=== PATIENT | male | born 1940 | race Caucasian/White ===

== ENCOUNTER 2017-10-10 01:34 | Day surgery (SDC) | payer MEDICARE, OTHER ==
[2017-10-03 14:05] LABS: PLATELET COUNT, AUTOMATED 212 K/uL (150-450)
--- NOTE | 2017-10-03 14:30 | EKG ---
FACILITY: [facility] PATIENT NAME: ISREAL ANAYA : [id number] MR: [id number] V: [id number] EXAM DATE: ORDERING PHYSICIAN: KELLEY GORDILLO TECHNOLOGIST: Vineet Boo Reason : PREOP Blood Pressure : / mmHG Vent. Rate : 063 BPM Atrial Rate : 063 BPM P-R Int : 190 ms QRS Dur : 080 ms QT Int : 406 ms P-R-T Axes : 041 018 055 degrees QTc Int : 415 ms Normal sinus rhythm Normal ECG When compared with ECG of 07-OCT-2015 08:58, No significant change was found Confirmed by FAN CROW ([id number]) on 10/03/2017 7:59:53 PM Referred By: Confirmed By:FAN CROW
--- NOTE | 2017-10-03 15:43 | RADIOLOGY IMAGING REPORT ---
[facility] PATIENT NAME: Carlos Raman : 1940 MR: [id number] V: [id number] EXAM DATE: ORDERING PHYSICIAN: KELLEY GORDILLO TECHNOLOGIST: Location: [facility] Patient: Carlos Raman : 1940 Visit/Account:[id number] Date of Sevice: 10/03/2017 Exam type: CHEST PA AND LAT History: HX OF BLADDER CA Comparison: October 07, 2015 and January 07, 2015. Findings: The lungs are free of acute effusions infiltrates or edema. There is a small band of subsegmental at electasis in the lateral left lung base. The cardiac silhouette is normal in size. The right infrah ilar region appears slightly more prominent when compared the prior study. Incidentally noted is a h iatal hernia IMPRESSION: 1. No acute cardiac pulmonary process is seen other than a small band of subsegmental atelectasis in the lateral left lung base The right infrahilar region appears more prominent when compared to the prior study. This may simply be related to difference in radiographic technique. Short-term interval follow-up chest may be help ful for further evaluation Report Dictated By: Lisa Benitez MD at 10/03/2017 3:32 PM Report E-Signed By: Lisa Benitez MD at 10/03/2017 3:39 PM WSN:[email or web address]
--- NOTE | 2017-10-09 16:43 | HISTORY AND PHYSICAL ---
DATE OF ADMISSION: October 10, 2017 CHIEF COMPLAINT Phimosis. HISTORY OF PRESENT ILLNESS Patient is a 77-year-old white male with a history of bladder cancer. He has been followed in the Urology Clinic for approximately six years. He noted increasing discomfort and difficulty in retracting his foreskin over the past several months. He was treated with topical triamcinolone and Silvadene mixture cream without any improvement, and has continued to have irritation with cracking and difficulty with hygiene. He is now being brought to the operating room for planned adult circumcision. PAST MEDICAL HISTORY * Coronary artery disease, status post FL in 2014, with last angiogram in 2010. * Hypertension. * Peptic ulcer disease. * Hypercholesterolemia. * Anxiety and depression. * History of elevated PSA. * Bladder cancer. PAST SURGICAL HISTORY * Cardiac stenting in 2004. * Colostomy times three. * Transurethral resection of bladder cancer in April 2012, followed by BCG intravesical treatments. * Cystoscopy with evacuation of bladder clots in May 2012. * Restaging transurethral resection of bladder tumor in June 2012. * Transurethral biopsy of bladder dome, September 2013. * Bilateral cataracts. * Inguinal hernia repair. ALLERGIES SULFA. CURRENT MEDICATIONS * Aspirin. * Lipitor. * Finasteride. * Bystolic. * Tamsulosin. * Citalopram. SOCIAL HISTORY Patient is , lives in [place], [place]. He has been without tobacco since 1995. FAMILY HISTORY Negative for prostate cancer. However, he has positive colon cancer in his family. REVIEW OF SYSTEMS Patient denies gross hematuria, flank pain, change in weight, productive cough, fever, chills, chest pain, dyspnea on exertion or bleeding disorder. PHYSICAL EXAMINATION GENERAL: Patient is a well-developed, well-nourished white male in no acute distress. HEENT: Normocephalic, atraumatic. CHEST: Clear to auscultation bilaterally. CARDIOVASCULAR: Regular rate and rhythm. ABDOMEN: Soft, nontender. No masses are palpated. GENITOURINARY: Exam is deferred to the OR. EXTREMITIES: Without clubbing, cyanosis or edema. NEUROLOGIC: Exam is nonfocal. IMPRESSION A 77-year-old white male with redundant foreskin with phimosis. PLAN We will perform adult circumcision. [facility]
[~2017-10-10] VITALS: Ht 185.4 cm; Wt 111.6 kg
[~2017-10-10 01:34] MED LIST: ASPI-1403 PO; ASPI-715 PO; ASPI81TA94 PO; ATOR20TA65 PO; CEPH500C24 PO; CITA-139 PO; CLO75 PO; CLOP75TA PO; CLOP75TA43 PO; DOC100 PO; DOCU-416 PO; ENAL20TA99 PO; FAMO-122 PO; FES4PT PO; FESO8PT PO; FINA5TAB67 PO; ISOS30TA51 PO; ISOS30TA54 PO; KET10 PO; LOR5 PO; LOR5/325 PO; METO25TA93 PO; NEB5 PO; NEBI5TAB PO; NIT100 PO; OXYB10TA21 PO; OXYC-373 PO; PER PO; PHEN200T32 PO; PNEU0.5D3 IM; ROS10 PO; TAMS0.4C25 PO; TAMS0.4C70 PO; TOLT4CAP13 PO; [UNRECOGNIZED DRUG - REMARK]
[2017-10-10] MEDS ORDERED: ceFAZolin(*) 1 GM VIAL 1 GM in NS(*) 0.9% 100 ML ADDVANT BAG 100 ML IV ONE (06:45)
[2017-10-10] MEDS ORDERED: ceFAZolin(*) 1 GM VIAL 1 GM in NS(*) 0.9% 100 ML ADDVANT BAG 100 ML IVPB ONE (06:45)
[2017-10-10] MEDS ORDERED: ceFAZolin 1 GM VIAL IVPB ONE (06:45)
[2017-10-10] MEDS ORDERED: NEOMYCIN/POLYMYX/BACITR 30 GM TP ONE (07:11)
[2017-10-10] MEDS ORDERED: ROPIVACAINE 0.2% 20 ML VIAL ONE (07:11)
[2017-10-10] MEDS ORDERED: LIDOCAINE MPF 1% 5 ML VIAL ONE (08:06)
[2017-10-10] MEDS ORDERED: ONDANSETRON 4 MG/2 ML VIAL ONE (08:06)
[2017-10-10] MEDS ORDERED: PROPOFOL EMUL(*) 10MG/ML 20 ML 20 ML ONE (08:06)
[2017-10-10] MEDS ORDERED: DEXAMETHASONE SOD 4 MG/ML VIAL ONE (08:06)
[2017-10-10 08:08] VITALS: BP 144/83
[2017-10-10] MEDS ORDERED: fentaNYL CITR 100 MCG/2 ML AMP ONE (08:09)
[2017-10-10] MEDS ORDERED: MIDAZOLAM 2 MG/2 ML VIAL IVP PRN (08:25)
[2017-10-10] MEDS ORDERED: NORMOSOL R SOLN(*) 1000 ML BAG 1,000 ML IV PRN (08:25)
[2017-10-10] MEDS ORDERED: LIDOCAINE/SOD BICARB 8.4% SYR ID ONE (08:25)
[2017-10-10] MEDS ORDERED: FAMOTIDINE 20 MG TAB PO ONE (08:25)
[2017-10-10] MEDS ORDERED: MINERAL OIL LIGHT 10 ML VIAL ONE (08:58)
[2017-10-10] MEDS ORDERED: KETOROLAC 30 MG/ML VIAL ONE (10:09)
[2017-10-10] MEDS ORDERED: HYDR-385 PO (10:43)
[2017-10-10] MEDS ORDERED: DOCU-416 PO (10:44)
[2017-10-10] MEDS ORDERED: NEOM28.424 TP (10:46)
[2017-10-10 11:15] VITALS: BP 129/73
[2017-10-10 11:21] VITALS: BP 123/73
[2017-10-10 11:23] VITALS: BP 123/72
--- NOTE | 2017-10-10 18:34 | OPERATIVE REPORT 1 ---
EVENT DATE: October 10, 2017 SURGEON: Kale Hankins MD ANESTHESIOLOGIST: Catarino Guadarrama MD ANESTHESIA: General anesthetic. PREOPERATIVE DIAGNOSIS Redundant foreskin with phimosis. POSTOPERATIVE DIAGNOSIS Redundant foreskin with phimosis. PROCEDURE PERFORMED Adult circumcision with penile block. ESTIMATED BLOOD LOSS 5 mL INTRAVENOUS FLUIDS Crystalloids. DRAINS None. COMPLICATIONS None. PATHOLOGY Foreskin for permanent analysis. FINDINGS BXO changes on the dorsal aspect of foreskin. CONDITION The patient was taken to the recovery room awake in stable condition. STATEMENT OF MEDICAL NECESSITY The patient is a 77-year-old white male with increasing difficulty retracting his foreskin with skin irritation. He has failed conservative treatment with triamcinolone and Silvadene creams. He is now being brought to the operating room for planned circumcision. DESCRIPTION OF PROCEDURE PERFORMED The patient was brought to the operating room, and after general anesthetic was obtained, he was given a penile block with 0.25% ropivacaine. Following this, the inner and outer tables of the foreskin were marked with the marking pen, and these areas were incised. They were connected ventrally and the redundant foreskin removed with electrocautery. Small bleeding vessels at the skin edge were controlled with electrocautery, and then the skin edges were reapproximated with interrupted mattress stitch of 4-0 chromic. Following repair, antibiotic ointment was placed along the incision, and a roll of gauze was placed around the penis. The patient was awakened in the operating room and taken to the recovery room and taken to the recovery area in stable condition. PLAN The plan will be to allow the patient to be discharged home later today. He is sent home on [place], Colace, and antibiotic ointment. We will plan to see the patient in the Urology Clinic in four to six weeks for followup exam. He is to remove his roll of gauze early this afternoon. [facility]
== END 2017-10-10 11:15 | disposition home or self-care (01) ==
LOC: OR 01:34
PROVIDERS: ATTEND Urology
DX: N47.8 Other disorders of prepuce (principal); N47.1 Phimosis; I10 Essential (primary) hypertension; I25.810 Atherosclerosis of coronary artery bypass graft(s) without angina pectoris; N40.0 Benign prostatic hyperplasia without lower urinary tract symptoms
CPT/HCPCS: 36415; 54161; 71046; 81001; 84153; 85025; 87088; 88307; 93005; A9270; J0690; J1100; J1885; J2001; J2405; J2704; J2795; J3010; 82040; 82247; 82310; 82374; 82435; 82565; 82947; 84075; 84132; 84155; 84295; 84450; 84460; 84520

== ENCOUNTER → 2018-03-04 | Outpatient (CLI) | payer MEDICARE, OTHER ==
[~2018-03-04] MED LIST changes: -CITA-139 PO; +CITA-145 PO; +HYDR-385 PO; +NEOM28.424 TP
[2018-03-04 08:38] LABS: PLATELET COUNT, AUTOMATED 162 K/uL (150-450)
[2018-03-04 09:46] LABS: LDL CHOLESTEROL 42 mg/dl
== END ==
LOC: LAB 08:06
PROVIDERS: ATTEND Nurse Practitioner Family
DX: Z12.5 Encounter for screening for malignant neoplasm of prostate (principal); E78.00 Pure hypercholesterolemia, unspecified; I10 Essential (primary) hypertension
CPT/HCPCS: 36415; 84443; 85025; G0103; 82040; 82247; 82310; 82374; 82435; 82465; 82565; 82947; 83718; 84075; 84132; 84153; 84155; 84295; 84450; 84460; 84478; 84520

== ENCOUNTER → 2018-03-07 | Outpatient (CLI) | payer MEDICARE, OTHER ==
--- NOTE | 2018-03-07 08:38 | RADIOLOGY IMAGING REPORT ---
FACILITY: [facility] [place] PATIENT NAME: Carlos Raman : 1940 MR: [id number] V: [id number] EXAM DATE: ORDERING PHYSICIAN: GOVIND CHOUDHURY TECHNOLOGIST: Location: [facility] [place] Patient: Carlos Raman : 1940 Visit/Account:[id number] Date of Sevice: 03/07/2018 2 VIEWS CHEST INDICATION: Chronic cough. COMPARISON: 10/03/2017 FINDINGS: Minimal atelectasis and/or scarring is seen in the left lung base. The lungs are otherwise clear and are well aerated. No effusion or pneumothorax is seen. Heart size and mediastinal contours are fabrizio l. Minimal atherosclerosis noted within the aortic arch. There is a suspected hiatal hernia. IMPRESSION: 1. No radiographic evidence of active disease. 2. Minimal scarring/atelectasis within the left lung base. Report Dictated By: Mendoza De Leon at 03/07/2018 8:33 AM Report E-Signed By: Mendoza De Leon at 03/07/2018 8:35 AM WSN:[email or web address]
== END ==
LOC: LAB 08:04
PROVIDERS: ATTEND Nurse Practitioner Family
DX: I25.10 Atherosclerotic heart disease of native coronary artery without angina pectoris (principal); R91.8 Other nonspecific abnormal finding of lung field
CPT/HCPCS: 71046

== ENCOUNTER → 2018-03-18 | Outpatient (REF) | payer MEDICARE, OTHER | LOC: ZZSENDIN 14:20 | PROVIDERS: ATTEND Urology | DX: C67.0 Malignant neoplasm of trigone of bladder (principal) | CPT/HCPCS: 88108 ==

== ENCOUNTER → 2018-09-12 | Outpatient (CLI) | payer MEDICARE, OTHER ==
--- NOTE | 2018-09-12 10:21 | RADIOLOGY IMAGING REPORT ---
FACILITY: [facility] [place] PATIENT NAME: Carlos Raman : 1940 MR: [id number] V: [id number] EXAM DATE: ORDERING PHYSICIAN: RADHA GUERRA TECHNOLOGIST: Location: [facility] [place] Patient: Carlos Raman : 1940 Visit/Account:[id number] Date of Sevice: 09/12/2018 EXAMINATION: Aorta ultrasound with duplex Doppler evaluation HISTORY: AAA seen on ultrasound 2016 COMPARISON: July 16, 2017 FINDINGS: Suprarenal abdominal aorta: 3.3 x 3.9 cm AP and transverse dimensions Superior infrarenal abdominal aorta: Two x 2.8 cm AP and transverse dimensions Mid infrarenal abdominal aorta: 3.2 x 3.6 cm AP and transverse dimensions Inferior infrarenal abdominal aorta: 3.3 x 3.3 cm AP and transverse dimensions Proximal common iliac artery diameter: Left 17 mm; right 15 mm Aorta wall: Not ideally evaluated. This was a technically limited study by technologist notation Aorta and proximal common iliac artery are patent by duplex Doppler ultrasound.. Incidental note of gallstones and a 2.5 x 3.2 cm left renal cyst IMPRESSION: Measurements of the suprarenal abdominal aorta of 3.3 x 3.9 cm consistent with aneurysm although on t he examination was technically limited by the technologist notation due to body habitus and bowel gas . Inferior infrarenal abdominal aorta measured 3.3 x 3.3 cm. Given the technical limitations furthe r evaluation with CT may be helpful depending upon the degree of clinical concern Cholelithiasis 3.2 cm left renal cyst Report Dictated By: Lisa Benitez MD at 09/12/2018 10:10 AM Report E-Signed By: Lisa Benitez MD at 09/12/2018 10:17 AM WSN:[email or web address]
== END ==
LOC: US 02:11
PROVIDERS: ATTEND Internal Medicine Cardiovascular Disease
DX: N28.1 Cyst of kidney, acquired (principal); I71.4 Abdominal aortic aneurysm, without rupture
CPT/HCPCS: 93979

== ENCOUNTER → 2018-11-24 | Outpatient (CLI) | payer MEDICARE, OTHER ==
[~2018-11-24] MED LIST changes: +LISI5TAB25 PO
== END ==
LOC: LAB 13:26
PROVIDERS: ATTEND Nurse Practitioner Family
DX: I10 Essential (primary) hypertension (principal)
CPT/HCPCS: 36415; 82040; 82247; 82310; 82374; 82435; 82565; 82947; 84075; 84132; 84155; 84295; 84450; 84460; 84520

== ENCOUNTER → 2018-12-17 | Outpatient (REF) | payer MEDICARE, OTHER ==
[~2018-12-17] MED LIST changes: +ROSU10TA PO
== END ==
LOC: ZZSENDIN 12:00
PROVIDERS: ATTEND Urology
DX: R31.9 Hematuria, unspecified (principal)
CPT/HCPCS: 88108

== ENCOUNTER 2018-12-25 14:06 | Emergency (ER) | payer MEDICARE, OTHER ==
--- NOTE | 2018-12-25 14:24 | ER Report ---
History and Physical Time Seen By MD: 14:24 Hx. of Stated Complaint: chest pain that started this morning. has one stent HPI/ROS CHIEF COMPLAINT: Chest pain HISTORY OF PRESENT ILLNESS: This is a 78-year-old male who presents to the emergency department for chest pain. Patient states while he was driving, about 11:00 today he had rather abrupt onset of left anterior chest pain, began with a moist nonproductive cough. No diaphoresis. No fevers or chills. No nausea or vomiting. No dysuria. REVIEW OF SYSTEMS: Constitutional: No fever, no chills. Eyes: No discharge. ENT: No sore throat. Cardiovascular: As above. Respiratory: As above. Gastrointestinal: No abdominal pain, no vomiting. Genitourinary: No hematuria. Musculoskeletal: No back pain. Skin: No rashes. Neurological: No headache. Allergies: Coded Allergies: Sulfa (Sulfonamide Antibiotics) (Verified Allergy, Mild, RASH, 12/25/18) Home Meds Active Scripts Prednisone (PREDNISONE) 20 Mg Tablet, 20 MG PO BID, #10 TAB Prov:KEZIA TRIMBLE-BC 12/25/18 Lisinopril (LISINOPRIL) 5 Mg Tablet, 1 TAB PO QDAY, #90 TAB 3 Refills Prov:GOVIND CHOUDHURY APRN-C 11/24/18 Atorvastatin Calcium (ATORVASTATIN CALCIUM) 20 Mg Tablet, 1 TAB PO DAILY, #90 TAB 1 Refill Prov:GOVIND CHOUDHURY APRN-C 08/19/18 Nebivolol Hcl (BYSTOLIC) 5 Mg Tablet, 1 TAB PO DAILY, #90 TAB 1 Refill Prov:GOVIND CHOUDHURY APRN-C 07/14/18 Isosorbide Mononitrate (ISOSORBIDE MONONITRATE ER) 30 Mg Tab.er.24h, 1 TAB PO DAILY, #90 TAB 1 Refill Prov:GVOIND CHOUDHURY APRN-C 06/27/18 Citalopram Hydrobromide (CITALOPRAM HBR) 20 Mg Tablet, 1 TAB PO QDAY, #90 TAB 3 Refills Prov:GOVIND CHOUDHURY APRN-C 06/10/18 Reported Medications Docusate Sodium (COLACE) 100 Mg Capsule, 100 MG PO BID for STOOL SOFTENER, #30 CAPSULE 10/10/17 Finasteride (FINASTERIDE) 5 Mg Tablet, 1 TAB PO QDAY, #90 TAB 3 Refills 01/07/15 Tamsulosin Hcl (TAMSULOSIN HCL) 0.4 Mg Cap.er.24h, 1 TAB PO HS, #90 CAP 3 Refills 01/07/15 Aspirin (ADULT LOW DOSE ASPIRIN EC) 81 Mg Tablet.dr, 81 MG PO 1-2XD 10/06/14 Past Medical/Surgical History The patient has a past medical and surgical history of coronary artery stent, myocardial infarction, hypertension, hypercholesterolemia, colonoscopy, GERD, bladder cancer BPH, skull fracture, hard of hearing, wears glasses, takes aspirin daily, depression, bladder surgery, hernia repair, cystoscopies. Reviewed Nurses Notes: Yes Hx Smoking: Yes (2 PACKS DAILY FOR 40 YEARS, QUIT 1995) Smoking Status: Former Smoker Exposure to Second Hand Smoke?: No Hx Substance Use Disorder: No Hx Alcohol Use: Yes Constitutional Vital Sign - Last 24 Hours 12/25/18 12/25/18 12/25/18 12/25/18 14:10 14:13 14:21 14:36 Pulse 70 68 65 Resp 16 12 13 B/P (MAP) 147/99 (115) 147/99 Pulse Ox 89 91 90 O2 Delivery Room Air 12/25/18 12/25/18 12/25/18 12/25/18 14:38 14:51 14:56 15:00 Pulse 64 Resp 10 B/P (MAP) 128/89 (102) ???/??? (6885) Pulse Ox 92 O2 Flow Rate 2.0 12/25/18 12/25/18 12/25/18 12/25/18 15:06 15:21 15:30 15:36 Pulse ??? 60 61 Resp 12 17 B/P (MAP) 110/67 (81) Pulse Ox 91 94 12/25/18 12/25/18 12/25/18 12/25/18 15:51 15:56 16:00 16:11 Pulse 59 58 58 Resp 16 9 15 B/P (MAP) 113/71 (85) Pulse Ox 90 90 89 12/25/18 12/25/18 12/25/18 12/25/18 16:26 16:28 16:28 16:33 Pulse 62 59 Resp 17 16 B/P (MAP) 114/82 (93) Pulse Ox 93 95 O2 Delivery Nasal Cannula O2 Flow Rate 1.0 12/25/18 12/25/18 12/25/18 12/25/18 16:33 16:41 16:56 17:00 Pulse 62 61 63 Resp 16 12 12 B/P (MAP) 115/75 (88) Pulse Ox 88 89 12/25/18 12/25/18 12/25/18 12/25/18 17:11 17:26 17:30 17:35 Pulse 63 64 Resp 11 15 B/P (MAP) 124/75 (91) Pulse Ox 90 89 86 O2 Delivery Room Air 12/25/18 12/25/18 12/25/18 12/25/18 17:41 17:46 18:01 18:16 Pulse 64 64 65 65 Resp 10 12 19 9 Pulse Ox 89 90 88 90 12/25/18 18:31 Pulse 66 Resp 13 Pulse Ox 90 Physical Exam General Appearance: The patient is alert, has no immediate need for airway protection and no signs of toxicity. Eyes: Pupils equal and round no pallor or injection. ENT, Mouth: Mucous membranes are dry. Respiratory: There are no retractions, lungs are clear to auscultation. Cardiovascular: Regular rate and rhythm, no murmurs, clicks or rubs. Gastrointestinal: Abdomen is soft and non tender, no masses, bowel sounds norm al. Neurological: Alert and oriented 4. Moving all extremities. Following all commands. No focal neuro deficits. Skin: Warm and dry, no rashes. Musculoskeletal: Neck is supple non tender. Extremities are nontender, nonswollen and have full range of motion. DIFFERENTIAL DIAGNOSIS: After history and physical exam differential diagnosis was considered for chest pain including but not limited to myocardial ischemia, pericarditis pulmonary embolus, chest wall pain, pleural inflammation and p ulmonary infectious causes. Medical Decision Making Data Points Result Diagram: 12/25/18 1431 12/25/18 1431 Laboratory Hematology Test 12/25/18 14:31 12/25/18 17:20 Red Blood Count 5.77 M/uL (4.00-5.60) Mean Corpuscular Volume 89.6 fL (80.0-96.0) Mean Corpuscular Hemoglobin 29.3 pg (26.0-33.0) Mean Corpuscular Hemoglobin Concent 32.7 g/dL (32.0-36.0) Red Cell Distribution Width 14.3 % (11.5-14.5) Mean Platelet Volume 8.4 fL (7.2-11.1) Neutrophils (%) (Auto) 60.4 % (39.4-72.5) Lymphocytes (%) (Auto) 25.0 % (17.6-49.6) Monocytes (%) (Auto) 11.1 % (4.1-12.4) Eosinophils (%) (Auto) 2.9 % (0.4-6.7) Basophils (%) (Auto) 0.6 % (0.3-1.4) Nucleated RBC Relative Count (auto) 0.1 /100WBC Neutrophils # (Auto) 3.8 K/uL (2.0-7.4) Lymphocytes # (Auto) 1.6 K/uL (1.3-3.6) Monocytes # (Auto) 0.7 K/uL (0.3-1.0) Eosinophils # (Auto) 0.2 K/uL (0.0-0.5) Basophils # (Auto) 0.0 K/uL (0.0-0.1) Nucleated RBC Absolute Count (auto) 0.00 K/uL D-Dimer Quantitative (PE/DVT) 0.30 ug/ml (0-0.50) Sodium Level 138 mmol/L (137-145) Potassium Level 4.2 mmol/L (3.5-5.0) Chloride Level 106 mmol/L (98-107) Carbon Dioxide Level 23 mmol/L (22-30) Blood Urea Nitrogen 30 mg/dl (9-21) Creatinine 1.00 mg/dl (0.66-1.25) Glomerular Filtration Rate Calc > 60.0 Random Glucose 151 mg/dl (75-110) Calcium Level 8.6 mg/dl (8.4-10.2) Total Bilirubin 0.9 mg/dl (0.2-1.3) Aspartate Amino Transf (AST/SGOT) 30 U/L (0-35) Alanine Aminotransferase (ALT/SGPT) 30 U/L (0-56) Alkaline Phosphatase 73 U/L (0-126) Total Protein 7.1 g/dl (6.3-8.2) Albumin 4.2 g/dl (3.5-5.0) Troponin I < 0.012 ng/ml Chemistry Test 12/25/18 14:31 12/25/18 17:20 White Blood Count 6.3 k/uL (4.5-11.0) Red Blood Count 5.77 M/uL (4.00-5.60) Hemoglobin 16.9 g/dL (14.0-18.0) Hematocrit 51.7 % (42.0-52.0) Mean Corpuscular Volume 89.6 fL (80.0-96.0) Mean Corpuscular Hemoglobin 29.3 pg (26.0-33.0) Mean Corpuscular Hemoglobin Concent 32.7 g/dL (32.0-36.0) Red Cell Distribution Width 14.3 % (11.5-14.5) Platelet Count 222 K/uL (150-450) Mean Platelet Volume 8.4 fL (7.2-11.1) Neutrophils (%) (Auto) 60.4 % (39.4-72.5) Lymphocytes (%) (Auto) 25.0 % (17.6-49.6) Monocytes (%) (Auto) 11.1 % (4.1-12.4) Eosinophils (%) (Auto) 2.9 % (0.4-6.7) Basophils (%) (Auto) 0.6 % (0.3-1.4) Nucleated RBC Relative Count (auto) 0.1 /100WBC Neutrophils # (Auto) 3.8 K/uL (2.0-7.4) Lymphocytes # (Auto) 1.6 K/uL (1.3-3.6) Monocytes # (Auto) 0.7 K/uL (0.3-1.0) Eosinophils # (Auto) 0.2 K/uL (0.0-0.5) Basophils # (Auto) 0.0 K/uL (0.0-0.1) Nucleated RBC Absolute Count (auto) 0.00 K/uL D-Dimer Quantitative (PE/DVT) 0.30 ug/ml (0-0.50) Glomerular Filtration Rate Calc > 60.0 Calcium Level 8.6 mg/dl (8.4-10.2) Total Bilirubin 0.9 mg/dl (0.2-1.3) Aspartate Amino Transf (AST/SGOT) 30 U/L (0-35) Alanine Aminotransferase (ALT/SGPT) 30 U/L (0-56) Alkaline Phosphatase 73 U/L (0-126) Total Protein 7.1 g/dl (6.3-8.2) Albumin 4.2 g/dl (3.5-5.0) Troponin I < 0.012 ng/ml Coagulation Test 12/25/18 14:31 D-Dimer Quantitative (PE/DVT) 0.30 ug/ml EKG/Imaging EKG Interpretation 12 lead EKG: Time of EKG 1416. Rhythm: Normal sinus rhythm, ventricular rate 67 bpm. [place]: normal QRS: normal ST segments: No ST depression or elevation identified. No significant changes from the 10/03/2017 EKG. Imaging Location: [facility] [place] Patient: Carlos Raman : 1940 Visit/Account:[id number] Date of Sevice: 12/25/2018 Technique: CHEST PA LAT HISTORY: Chest pain Comparison studies: Chest radiograph March 07, 2018 FINDINGS: There is a low degree of inspiration. Bibasilar linear opacities are noted. Lung apices are clear. Cardiac silhouette is unremarkable. IMPRESSION: 1. Low degree of inspiration with linear bibasilar opacities likely secondary to atelectasis. Report Dictated By: Hans Sam DO at 12/25/2018 3:18 PM Report E-Signed By: Hans Sam DO at 12/25/2018 3:20 PM WSN:[email or web address] ED Course/Re-evaluation Clinical Indication for ER IV: IV Access ED Course The patient was admitted to room. A history of physical were obtained. Differential diagnoses were considered. An IV was started. A CBC, CMP, troponin were obtained. Lab studies unremarkable. Negative troponin. Chest x-ray showing bilateral atelectasis, did review these results with the patient, I did recommend a repeat troponin, patient was agreeable, negative repeat troponin. I did recommend home oxygen for the low oxygen saturation in the emergency department, he will also use a flutter valve home in addition to this he will be given a course of steroids. Patient is agreeable with this plan of care, he'll follow up with his primary care provider for reevaluation next week, he was encouraged to return to the ER should he develop any other concerning symptoms which would be suggestive of pneumonia which we've thoroughly discussed. They had no other questions or concerns at this time, he was given 20 mg prednisone in the ER. Was also given a DuoNeb with some improvement, he was also given 324 mg chewable baby aspirin. Decision to Disposition Date: Dec 25, 2018 Decision to Disposition Time: 18:13 Depart Departure Latest Vital Signs Vital Signs Date Time Temp Pulse Resp B/P (MAP) Pulse Ox O2 Delivery O2 Flow Rate FiO2 12/25/18 18:31 66 13 90 12/25/18 17:35 Room Air 12/25/18 17:30 124/75 (91) 12/25/18 16:28 1.0 Impression: Primary Impression: Chest pain Additional Impression: Atelectasis of both lungs Condition: Improved Disposition: HOME OR SELF-CARE Referrals: GOVIND CHOUDHURY APRN PIPE CAULKER-C (PCP) 1 Week New Scripts Prednisone (PREDNISONE) 20 Mg Tablet 20 MG PO BID, #10 TAB Prov: KEZIA TRIMBLE PIPE CAULKER-BC 12/25/18 Departure Forms: ER Transition Record, Home Oxygen, Nebulizer RX, Home Ox ygen Company Chosen by Patient: [facility]xygen Durable Medical Equipment-Oxygen: Oxygen Concentrator, Portable Oxygen Gas Reason for Use/Diagnosis: Hypoxia, chest pain, atelectasis Start Date of the Order: Dec 25, 2018 Dosage or Concentration (if applicable) - LPM: 2 Route of Administration (if applicable): Nasal Cannula Frequency of Use: Continuous Duration Home O2 Required: 30 Duration Units: Days Room Air Oxygen Saturation: 86 ER Prescribing Physician's Name: Other NPI Numbers for Local ER MDs: Other Medications Reconciliation, Patient Portal Information Patient Instructions: Atelectasis (ED), Chest Pain (ED) Additional Instructions: There were no concerning findings on your EKG, or heart studies. You do have mild atelectasis on your x-ray, please use the flutter valve every hour as directed. Use the oxygen 24 hours a day for the next 7 days. Please follow-up with your primary care provider within one week for reevaluation. Take the prednisone as prescribed. If you develop fevers, increased chest pain or shortness of breath please return to the emergency department immediately for reevaluation. Problem Qualifiers Primary Impression: Chest pain Chest pain type: chest pain on breathing Qualified Codes: R07.1 - Chest pain on breathing KEZIA TRIMBLE-[place] Dec 25, 2018 14:24
[2018-12-25] MEDS ORDERED: NS(*) 0.9% 500 ML BAG 500 ML IV ONE (14:47)
[2018-12-25] MEDS ORDERED: ASPIRIN 81 MG CHEW PO ONE (14:50)
--- NOTE | 2018-12-25 14:52 | EKG ---
FACILITY: [facility] PATIENT NAME: ISREAL ANAYA : [id number] MR: [id number] V: [id number] EXAM DATE: ORDERING PHYSICIAN: KEZIA TRIMBLE TECHNOLOGIST: ILSA Boo Reason : CARDIAC Blood Pressure : / mmHG Vent. Rate : 067 BPM Atrial Rate : 067 BPM P-R Int : 196 ms QRS Dur : 086 ms QT Int : 406 ms P-R-T Axes : 053 -17 053 degrees QTc Int : 429 ms Sinus rhythm Borderline left axis Possible previous inferior infarct Nonspecific ST findings Abnormal ECG When compared with ECG of 03-OCT-2017 14:19, No significant change was found Confirmed by SHAYY NUNO ([id number]) on 12/26/2018 5:25:56 AM Referred By: Confirmed By:SHAYY NUNO
[2018-12-25 14:56] LABS: PLATELET COUNT, AUTOMATED 222 K/uL (150-450)
--- NOTE | 2018-12-25 15:25 | RADIOLOGY IMAGING REPORT ---
FACILITY: [facility] [place] PATIENT NAME: Carlos Raman : 1940 MR: [id number] V: [id number] EXAM DATE: ORDERING PHYSICIAN: KEZIA TRIMBLE TECHNOLOGIST: Location: [facility] [place] Patient: Carlos Raman : 1940 Visit/Account:[id number] Date of Sevice: 12/25/2018 Technique: CHEST PA LAT HISTORY: Chest pain Comparison studies: Chest radiograph March 07, 2018 FINDINGS: There is a low degree of inspiration. Bibasilar linear opacities are noted. Lung apices a re clear. Cardiac silhouette is unremarkable. IMPRESSION: 1. Low degree of inspiration with linear bibasilar opacities likely secondary to atelectasis. Report Dictated By: Hans Sam DO at 12/25/2018 3:18 PM Report E-Signed By: Hans Sam DO at 12/25/2018 3:20 PM WSN:[email or web address]
[2018-12-25] MEDS ORDERED: ALBUTEROL/IPRATROPIUM 3 ML NEB NEB ONE (16:25)
[2018-12-25 17:30] VITALS: BP 124/75
[2018-12-25] MEDS ORDERED: PRED20TA6 PO (18:16)
[2018-12-25] MEDS ORDERED: predniSONE 20 MG TAB PO ONE (18:20)
== END 2018-12-25 18:42 | disposition home or self-care (01) ==
LOC: ER 14:38
DX: R07.1 Chest pain on breathing (principal); J98.11 Atelectasis
CPT/HCPCS: 71046; 84484; 85025; 85379; 93005; 94640; 94667; 96360; 99284; A9270; J7040; J7512; J7620; 82040; 82247; 82310; 82374; 82435; 82565; 82947; 84075; 84132; 84155; 84295; 84450; 84460; 84520

== ENCOUNTER → 2019-04-03 | Outpatient (CLI) | payer MEDICARE, OTHER ==
[~2019-04-03] MED LIST changes: +PRED20TA6 PO
[2019-04-03 10:22] LABS: LDL CHOLESTEROL 46 mg/dl
== END ==
LOC: LAB 09:46
PROVIDERS: ATTEND Internal Medicine Cardiovascular Disease
DX: I25.10 Atherosclerotic heart disease of native coronary artery without angina pectoris (principal); I10 Essential (primary) hypertension; E78.00 Pure hypercholesterolemia, unspecified
CPT/HCPCS: 36415; 82040; 82247; 82310; 82374; 82435; 82465; 82565; 82947; 83718; 84075; 84132; 84155; 84295; 84450; 84460; 84478; 84520